=== PATIENT | female | born 1990 | race African-American/Black ===

== ENCOUNTER 2016-07-20 21:58 | Emergency (ER) | payer MEDICAID ==
[~2016-07-20] VITALS: Ht 147.3 cm; Wt 50.0 kg
[~2016-07-20 21:58] MED LIST: ALEVE 220MG220 MG PO; AMITRIPTYLINE H75 M1 PO; AMOXICILLIN 50500 MG PO; AMOXICILLIN 8751 TAB PO; ATARAX50 MG PO; CLEOCIN HCL300 MG PO; COLACE 100100 MG/CAP PO; DICLOXACILLIN500 MG PO; DILAUDID 2MG TAB2 MG PO; DOXYCYCLINE 10100 MG PO; FELDENE10 MG PO; FERROUS SU325 MG/TAB PO; FLAGYL500 MG PO; FLEXERIL 1010 MG/TAB PO; FLUOCINONIDE; FOLIC ACID 11 MG/TA1 PO; GENTAMICIN EYE D5 ML OU; IBU600 MG PO; LIDEX TP; LORTAB 5/500 501 TAB PO; MIRENA52 MG IU; MOBIC 7.5MG7.5 MG PO; MOTRIN 400400 MG/TAB PO; MOTRIN 600600 MG/TAB PO; MOTRIN 800800 MG/TAB PO; NAPROSYN500 MG PO; NEXPLANON68 MG; NEXPLANON68 MG ID; NORCO 325 MG-51 TAB PO; NORCO 325 MG-7.1 TAB PO; ORTHO TRI-CYCLE1 TAB PO; PEN-VEE K500 MG PO; PEPCID 20MG TAB20 MG PO; PERCOCET 325 MG1 TA2 PO; PERCOCET 325 MG1 TA3 PO; PHENERGAN 25 TA25 MG PO; PHENERGAN25 MG RC; PREDNISONE20 MG PO; PRENATAL1 TA1 PO; PRENATAL1 TA2 PO; PROCARDIA10 MG PO; ROXICODONE 55 MG/TAB PO; TUCKS50%; TYLENOL 325MG325 MG PO; ULTRAM 50MG TAB50 MG PO; VALIUM 10MG10 MG/TAB PO; VALTREX1 GM PO; VICODIN 5/300; VIT B 12; ZANTAC 150MG T150 MG PO; ZITHROMAX 250M250 MG PO; ZITHROMAX Z PA250 MG PO; ZOFRAN 4MG T4 MG/TAB PO; ZOFRAN ODT4 MG PO; ZOFRAN8 MG PO; ZOVIRAX 200MG200 MG PO; ZOVIRAX800 MG PO
[2016-07-20 22:03] VITALS: TEMP 97.9
[2016-07-20] MEDS ORDERED: DICLEGIS (22:11)
[2016-07-20] MEDS ORDERED: PERCOCET 325 MG1 TA2 PO (22:37)
[2016-07-20 22:53] VITALS: BP 97/62; PULSE 92
== END 2016-07-20 22:53 | disposition home or self-care (01) ==
LOC: COL.ER 21:58
DX: M54.5 Low back pain (principal); M53.3 Sacrococcygeal disorders, not elsewhere classified

== ENCOUNTER 2016-08-29 20:27 | Outpatient (CLI) | payer MEDICAID ==
[~2016-08-29] VITALS: Ht 147.3 cm; Wt 50.5 kg
[~2016-08-29 20:27] MED LIST changes: +DICLEGIS
[2016-08-29 20:52] VITALS: BP 95/53; PULSE 69; TEMP 97.9
[2016-08-29 21:00] VITALS: BP 95/53; PULSE 69
[2016-08-29] MEDS ORDERED: TYLENOL 500MG500 MG PO (21:10)
[2016-08-29 21:30] VITALS: BP 91/50; PULSE 66
[2016-08-29 22:00] VITALS: BP 93/51; PULSE 68
[2016-08-29 22:30] VITALS: BP 90/56; PULSE 73
[2016-08-29 23:04] VITALS: BP 91/50; PULSE 62
== END 2016-08-29 23:15 | disposition home or self-care (01) ==
LOC: LDRO 20:27
DX: O47.02 False labor before 37 completed weeks of gestation, second trimester (principal); O26.22 Pregnancy care for patient with recurrent pregnancy loss, second trimester; O99.332 Smoking (tobacco) complicating pregnancy, second trimester; F17.210 Nicotine dependence, cigarettes, uncomplicated; Z3A.24 24 weeks gestation of pregnancy
CPT/HCPCS: J7120

== ENCOUNTER 2016-09-03 17:30 | Emergency (ER) | payer MEDICAID ==
[~2016-09-03] VITALS: Ht 147.3 cm; Wt 45.5 kg
[~2016-09-03 17:30] MED LIST changes: +TYLENOL 500MG500 MG PO
[2016-09-03 17:41] VITALS: TEMP 98.4
[2016-09-03 18:55] LABS: PH 6 (5-8); SQUAMOUS EPITHELIAL 0-2 /hpf; URINE APPEARANCE Clear; URINE BACTERIA None Seen /hpf; URINE BILIRUBIN Negative (NEGATIVE); URINE BLOOD Negative (NEGATIVE); URINE COLOR Yellow; URINE GLUCOSE Negative (NEGATIVE); URINE KETONE Negative (NEGATIVE); URINE RBC 0-2 /hpf; URINE UROBILINOGEN Negative (NEGATIVE); URINE WBC 0-2 /hpf
[2016-09-03] MEDS ORDERED: PROMETHAZINE12.5 M5 PO (19:21)
[2016-09-03 19:31] VITALS: BP 110/65; PULSE 82
== END 2016-09-03 19:33 | disposition home or self-care (01) ==
LOC: COL.ER 17:30
PROVIDERS: Physician Assistant
DX: O99.322 Drug use complicating pregnancy, second trimester (principal); F11.20 Opioid dependence, uncomplicated; Z3A.24 24 weeks gestation of pregnancy; O99.332 Smoking (tobacco) complicating pregnancy, second trimester; F17.210 Nicotine dependence, cigarettes, uncomplicated

== ENCOUNTER 2016-11-02 16:21 | Outpatient (CLI) | payer MEDICAID ==
[~2016-11-02] VITALS: Ht 147.3 cm; Wt 54.5 kg
[~2016-11-02 16:21] MED LIST changes: +PROMETHAZINE12.5 M5 PO
[2016-11-02 16:43] VITALS: BP 89/55; PULSE 62; TEMP 97.5
[2016-11-02 17:00] VITALS: BP 89/55; PULSE 62; TEMP 97.5
[2016-11-02 19:30] VITALS: BP 99/55; PULSE 67
== END 2016-11-02 19:45 | disposition home or self-care (01) ==
LOC: LDRO 16:21
DX: O47.03 False labor before 37 completed weeks of gestation, third trimester (principal); F17.210 Nicotine dependence, cigarettes, uncomplicated; Z3A.33 33 weeks gestation of pregnancy

== ENCOUNTER 2016-11-30 15:56 | Inpatient (IN) | payer MEDICAID ==
[2016-11-30] VITALS (22 sets, daily range): BP systolic 95–137; BP diastolic 50–85; PULSE 52–76; TEMP 97.7–98.2
[~2016-11-30] VITALS: Ht 149.9 cm; Wt 53.6 kg
[2016-11-30 19:22] LABS: BASO % 0.1 % (0.0-2.0); EOS # 0.1 (0.0-0.7); EOS % 0.7 % (0-4.0); GRAN # 10.2 (1.4-6.5); GRAN % 74.2 % (42.2-75.2); LYMPH # 2.5 (1.2-3.4); LYMPH % 18.2 % (20.0-51.0); MEAN CELL VOLUME 92 fl (80.0-100.0); MEAN CORPUSCULAR HGB CONC 36 g/dl (33.0-37.0); MEAN PLATELET VOLUME 9.9 fl (7.4-10.4); MONO # 0.8 (0.1-0.6); MONO % 6.1 % (1.7-9.3); PLATELET COUNT 219 K/mm3 (130-400); RED BLOOD COUNT 2.97 M/mm3 (4.10-5.30); REDCELL DISTRIBUTION WIDTH-CV 12.5 % (11.5-14.5); WHITE BLOOD COUNT 13.7 K/mm3 (4.8-10.8)
[2016-11-30 19:24] LABS: HEMATOCRIT 27.3 % (37.0-47.0); HEMOGLOBIN 9.8 g/dl (12.5-16.0); MEAN CORPUSCULAR HEMOGLOBIN 33 pg (27.0-31.0)
[2016-11-30 19:42] LABS: AMPHETAMINE URINE NEGATIVE; BARBITURATES URINE NEGATIVE; BENZODIAZEPINES URINE NEGATIVE; BUPRENORPHINE URINE NEGATIVE; METHADONE URINE NEGATIVE; OPIATES URINE NEGATIVE; OXYCODONE URINE NEGATIVE; PHENCYCLIDINE URINE NEGATIVE; PROPOXYPHENE URINE NEGATIVE; THC CANNABINOIDS URINE NEGATIVE
[2016-12-01] VITALS (7 sets, daily range): BP systolic 94–132; BP diastolic 51–75; PULSE 48–86; TEMP 97.5–98.8
[2016-12-02 08:52] VITALS: BP 96/57; PULSE 51; TEMP 98
[2016-12-02] MEDS ORDERED: IBU600 MG PO (11:46)
[2016-12-02] MEDS ORDERED: PERCOCET 325 MG1 TA2 PO (11:47)
[2016-12-02] MEDS ORDERED: BREASTPUMP MC (11:56)
== END 2016-12-02 12:30 | disposition home or self-care (01) | DRG 774 ==
LOC: LDRO 15:56 → LDR 19:15 → OB 12-01 00:30
PROVIDERS: Obstetrics & Gynecology
PROC: 10E0XZZ Delivery of Products of Conception, External Approach (ICD-10-PCS; principal; 2016-11-30)
PROC: 3E033VJ Introduction of Other Hormone into Peripheral Vein, Percutaneous Approach (ICD-10-PCS; 2016-11-30)
PROC: 0HQ9XZZ Repair Perineum Skin, External Approach (ICD-10-PCS; 2016-11-30)
DX: O41.03X0 Oligohydramnios, third trimester, not applicable or unspecified (principal); O98.511 Other viral diseases complicating pregnancy, first trimester; B00.9 Herpesviral infection, unspecified; O76 Abnormality in fetal heart rate and rhythm complicating labor and delivery; O99.334 Smoking (tobacco) complicating childbirth; F17.210 Nicotine dependence, cigarettes, uncomplicated; O99.02 Anemia complicating childbirth; D57.3 Sickle-cell trait; O70.0 First degree perineal laceration during delivery; Z3A.37 37 weeks gestation of pregnancy; Z37.0 Single live birth
CPT/HCPCS: J2590; J7120

== ENCOUNTER 2016-12-11 15:55 | Emergency (ER) | payer MEDICAID ==
[~2016-12-11] VITALS: Ht 147.3 cm; Wt 50.0 kg
[~2016-12-11 15:55] MED LIST changes: +BREASTPUMP MC
[2016-12-11 16:03] VITALS: PULSE 55; TEMP 98
[2016-12-11 17:03] LABS: BASO % 0.3 % (0.0-2.0); EOS # 0.2 (0.0-0.7); EOS % 2.2 % (0-4.0); GRAN # 6.2 (1.4-6.5); HEMATOCRIT 31.8 % (37.0-47.0); HEMOGLOBIN 11.1 g/dl (12.5-16.0); LYMPH # 3.5 (1.2-3.4); LYMPH % 33.1 % (20.0-51.0); MEAN CELL VOLUME 96 fl (80.0-100.0); MEAN CORPUSCULAR HEMOGLOBIN 33 pg (27.0-31.0); MEAN CORPUSCULAR HGB CONC 35 g/dl (33.0-37.0); MEAN PLATELET VOLUME 9.3 fl (7.4-10.4); MONO # 0.5 (0.1-0.6); MONO % 5.2 % (1.7-9.3); PLATELET COUNT 392 K/mm3 (130-400); RED BLOOD COUNT 3.33 M/mm3 (4.10-5.30); REDCELL DISTRIBUTION WIDTH-CV 12.6 % (11.5-14.5); WHITE BLOOD COUNT 10.5 K/mm3 (4.8-10.8)
[2016-12-11 17:05] LABS: PH 6 (5-8); SQUAMOUS EPITHELIAL None Seen /hpf; URINE APPEARANCE Clear; URINE BACTERIA None Seen /hpf; URINE BILIRUBIN Negative (NEGATIVE); URINE BLOOD 1+ (NEGATIVE); URINE COLOR Straw; URINE GLUCOSE Negative (NEGATIVE); URINE KETONE Negative (NEGATIVE); URINE RBC 0-2 /hpf; URINE UROBILINOGEN Negative (NEGATIVE); URINE WBC 0-2 /hpf
[2016-12-11 17:14] LABS: ADJUSTED CALCIUM 8.8 mg/dL (8.4-10.2); ALBUMIN 4.2 gm/dL (3.5-5.0); BILIRUBIN,TOTAL 0.6 mg/dL (0.0-1.0); CREATININE, serum 0.7 mg/dL (0.52-1.25); POTASSIUM 3.8 mmol/L (3.4-5.0); TOTAL PROTEIN 7.2 gm/dL (6.4-8.2)
[2016-12-11] MEDS ORDERED: PROCARDIA XL 3030 MG PO (18:34)
[2016-12-11 18:47] VITALS: BP 159/95
== END 2016-12-11 18:54 | disposition home or self-care (01) ==
LOC: COL.ER 15:55
PROVIDERS: Emergency Medicine
DX: O99.43 Diseases of the circulatory system complicating the puerperium (principal); I10 Essential (primary) hypertension; O99.53 Diseases of the respiratory system complicating the puerperium; J45.909 Unspecified asthma, uncomplicated; O99.345 Other mental disorders complicating the puerperium; F20.9 Schizophrenia, unspecified; O99.63 Diseases of the digestive system complicating the puerperium; K21.9 Gastro-esophageal reflux disease without esophagitis; O99.335 Smoking (tobacco) complicating the puerperium; Z98.890 Other specified postprocedural states; Z98.51 Tubal ligation status; Z90.721 Acquired absence of ovaries, unilateral
CPT/HCPCS: J2765; J3010; J7040

== ENCOUNTER 2017-01-21 21:28 | Emergency (ER) | payer MEDICAID ==
[~2017-01-21] VITALS: Ht 147.3 cm; Wt 52.3 kg
[~2017-01-21 21:28] MED LIST changes: +PROCARDIA XL 3030 MG PO
[2017-01-21 21:36] VITALS: BP 114/69; TEMP 98.4
[2017-01-21] MEDS ORDERED: PERCOCET 325 MG1 TA2 PO (21:40)
[2017-01-21 23:55] VITALS: PULSE 72
== END 2017-01-21 23:58 | disposition home or self-care (01) ==
LOC: COL.ER 21:28
DX: R51 Headache (principal); Z98.51 Tubal ligation status
CPT/HCPCS: J1200; J1630; J1885; J2405; J7030

== ENCOUNTER 2017-01-25 01:54 | Emergency (ER) | payer MEDICAID ==
[~2017-01-25] VITALS: Ht 147.3 cm; Wt 50.0 kg
[2017-01-25 01:57] VITALS: TEMP 97.6
[2017-01-25] MEDS ORDERED: MOTRIN 800800 MG/TAB PO (02:37)
[2017-01-25] MEDS ORDERED: COLACE 100100 MG/CAP PO (02:37)
[2017-01-25] MEDS ORDERED: IRON 27 MG PO (02:38)
[2017-01-25 02:39] LABS: BASO # 0.1 (0.0-0.2); BASO % 0.4 % (0.0-2.0); EOS # 0.6 (0.0-0.7); EOS % 3.5 % (0-4.0); GRAN # 10.1 (1.4-6.5); GRAN % 61.7 % (42.2-75.2); HEMATOCRIT 35.9 % (37.0-47.0); HEMOGLOBIN 12.7 g/dl (12.5-16.0); LYMPH # 4.8 (1.2-3.4); LYMPH % 29.3 % (20.0-51.0); MEAN CELL VOLUME 93 fl (80.0-100.0); MEAN CORPUSCULAR HEMOGLOBIN 33 pg (27.0-31.0); MEAN CORPUSCULAR HGB CONC 35 g/dl (33.0-37.0); MEAN PLATELET VOLUME 9.5 fl (7.4-10.4); MONO # 0.8 (0.1-0.6); MONO % 4.9 % (1.7-9.3); PLATELET COUNT 316 K/mm3 (130-400); RED BLOOD COUNT 3.88 M/mm3 (4.10-5.30); REDCELL DISTRIBUTION WIDTH-CV 11.3 % (11.5-14.5); WHITE BLOOD COUNT 16.3 K/mm3 (4.8-10.8)
[2017-01-25 03:56] VITALS: BP 112/75; PULSE 50
== END 2017-01-25 03:56 | disposition home or self-care (01) ==
LOC: COL.ER 01:54
PROVIDERS: Emergency Medicine
DX: J06.9 Acute upper respiratory infection, unspecified (principal); R07.89 Other chest pain; F17.210 Nicotine dependence, cigarettes, uncomplicated; Z90.49 Acquired absence of other specified parts of digestive tract; Z90.89 Acquired absence of other organs; Z98.51 Tubal ligation status
CPT/HCPCS: Q9967

== ENCOUNTER 2017-03-10 20:48 | Emergency (ER) | payer MEDICAID ==
[~2017-03-10] VITALS: Ht 147.3 cm; Wt 52.3 kg
[~2017-03-10 20:48] MED LIST changes: +IRON 27 MG PO
[2017-03-10 20:56] VITALS: BP 102/65; TEMP 98.6
[2017-03-10] MEDS ORDERED: VALTREX 50500 MG/TAB PO (21:00)
[2017-03-10 21:56] VITALS: PULSE 61
== END 2017-03-10 21:56 | disposition home or self-care (01) ==
LOC: COL.ER 20:48
DX: M67.432 Ganglion, left wrist (principal); F17.210 Nicotine dependence, cigarettes, uncomplicated; D57.3 Sickle-cell trait; Z87.39 Personal history of other diseases of the musculoskeletal system and connective tissue
CPT/HCPCS: J1885

== ENCOUNTER 2017-05-29 17:52 | Emergency (ER) | payer MEDICAID ==
[~2017-05-29] VITALS: Ht 147.3 cm; Wt 54.5 kg
[2017-05-29 17:52] VITALS: TEMP 97.4
[~2017-05-29 17:52] MED LIST changes: +VALTREX 50500 MG/TAB PO
[2017-05-29] MEDS ORDERED: FLAGYL500 MG PO (17:57)
[2017-05-29 20:34] VITALS: BP 121/81; PULSE 65
== END 2017-05-29 20:35 | disposition home or self-care (01) ==
LOC: COL.ER 17:52
DX: S09.90XA Unspecified injury of head, initial encounter (principal); S01.81XA Laceration without foreign body of other part of head, initial encounter; F20.9 Schizophrenia, unspecified; J45.909 Unspecified asthma, uncomplicated; F17.210 Nicotine dependence, cigarettes, uncomplicated; Z86.2 Personal history of diseases of the blood and blood-forming organs and certain disorders involving the immune mechanism; W18.09XA Striking against other object with subsequent fall, initial encounter; Y92.009 Unspecified place in unspecified non-institutional (private) residence as the place of occurrence of the external cause
CPT/HCPCS: J1170; J2405

== ENCOUNTER 2017-05-30 21:41 | Emergency (ER) | payer MEDICAID ==
[~2017-05-30] VITALS: Ht 147.3 cm; Wt 54.5 kg
[2017-05-30 21:46] VITALS: BP 104/66; TEMP 98.9
[2017-05-31] MEDS ORDERED: ZANAFLEX2 MG PO (00:10)
[2017-05-31 00:54] VITALS: PULSE 80
== END 2017-05-31 00:30 | disposition home or self-care (01) ==
LOC: COL.ER 21:41
DX: S16.1XXA Strain of muscle, fascia and tendon at neck level, initial encounter (principal); S39.012A Strain of muscle, fascia and tendon of lower back, initial encounter; W19.XXXA Unspecified fall, initial encounter

== ENCOUNTER 2017-07-25 22:34 | Emergency (ER) | payer MEDICAID ==
[~2017-07-25] VITALS: Ht 147.3 cm; Wt 52.3 kg
[~2017-07-25 22:34] MED LIST changes: +ZANAFLEX2 MG PO
[2017-07-25 22:38] VITALS: TEMP 97.2
[2017-07-25 23:46] LABS: COLLECTION METHOD CLEAN CATCH
[2017-07-25 23:48] LABS: BASO % 0.3 % (0.0-2.0); EOS # 0.3 (0.0-0.7); EOS % 2.9 % (0-4.0); GRAN % 59.2 % (42.2-75.2); HEMOGLOBIN 12.5 g/dl (12.5-16.0); LYMPH # 3.9 (1.2-3.4); LYMPH % 33.1 % (20.0-51.0); MEAN CELL VOLUME 94 fl (80.0-100.0); MEAN CORPUSCULAR HEMOGLOBIN 33 pg (27.0-31.0); MEAN CORPUSCULAR HGB CONC 36 g/dl (33.0-37.0); MEAN PLATELET VOLUME 9.5 fl (7.4-10.4); MONO # 0.5 (0.1-0.6); MONO % 4.2 % (1.7-9.3); PLATELET COUNT 265 K/mm3 (130-400); RED BLOOD COUNT 3.75 M/mm3 (4.10-5.30); REDCELL DISTRIBUTION WIDTH-CV 12.1 % (11.5-14.5)
[2017-07-25 23:49] LABS: HEMATOCRIT 35.1 % (37.0-47.0)
[2017-07-25 23:51] LABS: MUCOUS Present /lpf; PH 6 (5-8); SQUAMOUS EPITHELIAL 0-2 /hpf; URINE APPEARANCE Clear; URINE BACTERIA None Seen /hpf; URINE BILIRUBIN Negative (NEGATIVE); URINE BLOOD Negative (NEGATIVE); URINE COLOR Straw; URINE GLUCOSE Negative (NEGATIVE); URINE KETONE Negative (NEGATIVE); URINE LEUKOCYTE ESTERASE Negative (NEGATIVE); URINE NITRATE Negative (NEGATIVE); URINE PROTEIN(semi-quant) Negative (NEGATIVE); URINE RBC 0-2 /hpf; URINE UROBILINOGEN Negative (NEGATIVE)
[2017-07-25 23:59] LABS: ALBUMIN 4.4 gm/dL (3.5-5.0); BILIRUBIN,TOTAL 0.4 mg/dL (0.0-1.0); CALCIUM 9.5 mg/dL (8.4-10.2); CREATININE, serum 0.59 mg/dL (0.52-1.25); POTASSIUM 3.8 mmol/L (3.4-5.0); TOTAL PROTEIN 7.3 gm/dL (6.4-8.2)
[2017-07-26] MEDS ORDERED: PERCOCET 325 MG1 TA2 PO (00:49)
[2017-07-26 01:04] VITALS: BP 110/79; PULSE 57
== END 2017-07-26 01:08 | disposition home or self-care (01) ==
LOC: COL.ER 22:34
PROVIDERS: Emergency Medicine
DX: N83.202 Unspecified ovarian cyst, left side (principal); F17.210 Nicotine dependence, cigarettes, uncomplicated; Z90.721 Acquired absence of ovaries, unilateral; Z98.51 Tubal ligation status; Z90.6 Acquired absence of other parts of urinary tract; Z90.89 Acquired absence of other organs
CPT/HCPCS: J2765; J3010; J7030; Q9967

== ENCOUNTER 2017-08-26 00:14 | Emergency (ER) | payer MEDICAID ==
[~2017-08-26] VITALS: Ht 147.3 cm; Wt 52.3 kg
[2017-08-26 00:18] VITALS: TEMP 98
[2017-08-26] MEDS ORDERED: FLEXERIL5 MG PO (01:35)
[2017-08-26] MEDS ORDERED: NAPROSYN500 MG PO (01:46)
[2017-08-26 02:15] VITALS: BP 116/66; PULSE 71
== END 2017-08-26 02:25 | disposition home or self-care (01) ==
LOC: COL.ER 00:14
DX: M54.2 Cervicalgia (principal); M62.838 Other muscle spasm; J45.909 Unspecified asthma, uncomplicated; F20.0 Paranoid schizophrenia; F17.210 Nicotine dependence, cigarettes, uncomplicated; Z85.41 Personal history of malignant neoplasm of cervix uteri; Z90.89 Acquired absence of other organs; Z98.51 Tubal ligation status; Z90.721 Acquired absence of ovaries, unilateral; Z98.890 Other specified postprocedural states; W00.0XXA Fall on same level due to ice and snow, initial encounter
CPT/HCPCS: J1885

== ENCOUNTER 2017-09-25 00:26 | Emergency (ER) | payer MEDICAID ==
[~2017-09-25] VITALS: Ht 147.3 cm; Wt 50.0 kg
[~2017-09-25 00:26] MED LIST changes: +FLEXERIL5 MG PO
[2017-09-25 00:35] VITALS: TEMP 97.8
[2017-09-25 01:50] VITALS: BP 111/63; PULSE 81
== END 2017-09-25 01:53 | disposition home or self-care (01) ==
LOC: COL.ER 00:26
DX: B34.9 Viral infection, unspecified (principal); F17.210 Nicotine dependence, cigarettes, uncomplicated; Z96.22 Myringotomy tube(s) status; Z86.2 Personal history of diseases of the blood and blood-forming organs and certain disorders involving the immune mechanism; Z87.42 Personal history of other diseases of the female genital tract; Z88.2 Allergy status to sulfonamides; Z88.1 Allergy status to other antibiotic agents; Z88.6 Allergy status to analgesic agent; Z90.89 Acquired absence of other organs; Z98.890 Other specified postprocedural states

== ENCOUNTER 2018-01-05 19:57 | Emergency (ER) | payer MEDICAID ==
[~2018-01-05] VITALS: Ht 147.3 cm; Wt 51.8 kg
[2018-01-05 20:04] VITALS: BP 110/60; PULSE 80; TEMP 98.5
[2018-01-05] MEDS ORDERED: PERCOCET 325 MG1 TA2 PO (22:13)
== END 2018-01-05 22:29 | disposition home or self-care (01) ==
LOC: COL.ER 19:57
DX: S16.1XXA Strain of muscle, fascia and tendon at neck level, initial encounter (principal); M54.9 Dorsalgia, unspecified; M54.2 Cervicalgia; G89.29 Other chronic pain; F17.210 Nicotine dependence, cigarettes, uncomplicated; Z79.891 Long term (current) use of opiate analgesic; W00.0XXA Fall on same level due to ice and snow, initial encounter

== ENCOUNTER 2018-07-13 19:57 | Emergency (ER) | payer MEDICAID ==
[~2018-07-13] VITALS: Ht 147.3 cm; Wt 53.2 kg
[2018-07-13 19:59] VITALS: BP 100/59; TEMP 98.8
[2018-07-13] MEDS ORDERED: PRENATAL MVI PO (20:17)
[2018-07-13] MEDS ORDERED: SUBOXONE 8 MG-21 TAB SL (20:18)
[2018-07-13 22:08] VITALS: PULSE 64
== END 2018-07-13 22:09 | disposition home or self-care (01) ==
LOC: COL.ER 19:57
DX: K08.89 Other specified disorders of teeth and supporting structures (principal); F17.210 Nicotine dependence, cigarettes, uncomplicated; Z98.51 Tubal ligation status

== ENCOUNTER 2020-09-26 23:36 | Emergency (ER) | payer MEDICAID ==
[~2020-09-26] VITALS: Ht 147.3 cm; Wt 51.4 kg
[~2020-09-26 23:36] MED LIST changes: +PRENATAL MVI PO; +SUBOXONE 8 MG-21 TAB SL
[2020-09-26 23:48] VITALS: TEMP 97.9
[2020-09-27 00:37] VITALS: BP 94/58; PULSE 72
== END 2020-09-27 00:37 | disposition home or self-care (01) ==
LOC: COL.ER 23:36
DX: H10.31 Unspecified acute conjunctivitis, right eye (principal); F17.210 Nicotine dependence, cigarettes, uncomplicated; Z88.2 Allergy status to sulfonamides; Z88.5 Allergy status to narcotic agent

== ENCOUNTER 2020-12-22 12:51 | Emergency (ER) | payer MEDICAID ==
[~2020-12-22] VITALS: Ht 147.3 cm; Wt 52.3 kg
[2020-12-22 13:00] VITALS: TEMP 98.7
[2020-12-22 14:04] LABS: BASO % 0.3 % (0.0-2.0); EOS # 0.3 (0.0-0.7); EOS % 3.6 % (0-4.0); GRAN # 5.8 (1.4-6.5); GRAN % 63.9 % (42.2-75.2); HEMOGLOBIN 11.6 g/dl (12.5-16.0); LYMPH # 2.4 (1.2-3.4); LYMPH % 26.7 % (20.0-51.0); MEAN CELL VOLUME 92 fl (80.0-100.0); MEAN CORPUSCULAR HEMOGLOBIN 32 pg (27.0-31.0); MEAN CORPUSCULAR HGB CONC 35 g/dl (33.0-37.0); MEAN PLATELET VOLUME 9.5 fl (7.4-10.4); MONO # 0.5 (0.1-0.6); MONO % 5.3 % (1.7-9.3); PLATELET COUNT 240 K/mm3 (130-400); RED BLOOD COUNT 3.62 M/mm3 (4.10-5.30); REDCELL DISTRIBUTION WIDTH-CV 11.9 % (11.5-14.5)
[2020-12-22 14:05] LABS: HEMATOCRIT 33.4 % (37.0-47.0)
[2020-12-22 14:17] LABS: ALBUMIN 3.4 gm/dL (3.5-5.0); BILIRUBIN,TOTAL 0.2 mg/dL (0.0-1.0); CALCIUM 8.5 mg/dL (8.4-10.2); CREATININE, serum 0.47 (0.52-1.25); POTASSIUM 3.5 mmol/L (3.4-5.0); TOTAL PROTEIN 6.2 gm/dL (6.4-8.2)
[2020-12-22 14:28] LABS: COLLECTION METHOD CLEAN CATCH
[2020-12-22 14:57] LABS: PH 5 (5-8); URINE APPEARANCE Hazy; URINE BACTERIA None Seen /hpf; URINE BILIRUBIN Negative (NEGATIVE); URINE BLOOD Negative (NEGATIVE); URINE COLOR Yellow; URINE GLUCOSE Negative (NEGATIVE); URINE KETONE Negative (NEGATIVE); URINE LEUKOCYTE ESTERASE Negative (NEGATIVE); URINE NITRATE Negative (NEGATIVE); URINE PROTEIN(semi-quant) Negative (NEGATIVE); URINE RBC 0-2 /hpf; URINE UROBILINOGEN Negative (NEGATIVE)
[2020-12-22] MEDS ORDERED: NAPROSYN500 MG PO (15:51)
[2020-12-22 16:43] VITALS: BP 93/50; PULSE 63
== END 2020-12-22 16:42 | disposition home or self-care (01) ==
LOC: COL.ER 12:51
PROVIDERS: Nurse Practitioner
DX: M54.42 Lumbago with sciatica, left side (principal); F17.210 Nicotine dependence, cigarettes, uncomplicated; Z88.6 Allergy status to analgesic agent
CPT/HCPCS: J1885; J2405; J7030

== ENCOUNTER 2021-01-03 09:31 | Emergency (ER) | payer MEDICAID ==
[~2021-01-03] VITALS: Ht 147.3 cm; Wt 52.3 kg
[2021-01-03 09:56] VITALS: TEMP 98.4
[2021-01-03] MEDS ORDERED: PROZAC40 MG PO (10:01)
[2021-01-03] MEDS ORDERED: ZYPREXA2.5 MG PO (10:01)
[2021-01-03 10:36] LABS: BASO % 0.4 % (0.0-2.0); EOS # 0.6 (0.0-0.7); EOS % 6.1 % (0-4.0); GRAN # 5.9 (1.4-6.5); GRAN % 55.5 % (42.2-75.2); HEMATOCRIT 35.5 % (37.0-47.0); HEMOGLOBIN 12.4 g/dl (12.5-16.0); LYMPH # 3.2 (1.2-3.4); LYMPH % 30.3 % (20.0-51.0); MEAN CELL VOLUME 91 fl (80.0-100.0); MEAN CORPUSCULAR HEMOGLOBIN 32 pg (27.0-31.0); MEAN CORPUSCULAR HGB CONC 35 g/dl (33.0-37.0); MEAN PLATELET VOLUME 10.1 fl (7.4-10.4); MONO # 0.8 (0.1-0.6); MONO % 7.6 % (1.7-9.3); PLATELET COUNT 269 K/mm3 (130-400); RED BLOOD COUNT 3.92 M/mm3 (4.10-5.30); REDCELL DISTRIBUTION WIDTH-CV 12.3 % (11.5-14.5)
[2021-01-03 11:08] LABS: ALANINE AMINOTRANSFERASE 63 U/L (4-34); ALBUMIN 3.8 gm/dL (3.5-5.0); ALKALINE PHOSPHATASE 106 U/L (50-136); ANION GAP 3 mmol/L (7-16); AST,SGOT 44 U/L (15-37); BILIRUBIN,TOTAL 0.2 mg/dL (0.0-1.0); BLOOD UREA NITROGEN 8 mg/dL (7-17); CALCIUM 8.9 mg/dL (8.4-10.2); CARBON DIOXIDE 28 mmol/L (22-30); CHLORIDE 107 mmol/L (98-107); CREATININE, serum 0.54 (0.52-1.25); GLUCOSE 92 mg/dL (74-106); SODIUM 138 mmol/L (137-145); TOTAL PROTEIN 6.8 gm/dL (6.4-8.2)
[2021-01-03 11:24] LABS: TROPONIN-I < 0.012 ng/mL (0.000-0.035)
[2021-01-03 11:25] LABS: POTASSIUM 4.3 mmol/L (3.4-5.0)
[2021-01-03] MEDS ORDERED: TUSS PO ×3 (12:04→13:00)
[2021-01-03] MEDS ORDERED: PROAIR HFA0.09 MG/AC IH (12:04)
[2021-01-03] MEDS ORDERED: ZITHROMAX Z PA250 MG PO (12:04)
[2021-01-03] MEDS ORDERED: PREDNISONE20 MG PO (12:04)
[2021-01-03 12:15] VITALS: BP 118/80; PULSE 61
== END 2021-01-03 12:15 | disposition home or self-care (01) ==
LOC: COL.ER 09:31
PROVIDERS: Emergency Medicine; Nurse Practitioner Primary Care
DX: J21.9 Acute bronchiolitis, unspecified (principal); J45.909 Unspecified asthma, uncomplicated; F20.9 Schizophrenia, unspecified; F17.210 Nicotine dependence, cigarettes, uncomplicated; Z88.6 Allergy status to analgesic agent; Z88.8 Allergy status to other drugs, medicaments and biological substances; Z20.822 Contact with and (suspected) exposure to COVID-19
CPT/HCPCS: J1885

== ENCOUNTER 2021-03-05 04:25 | Emergency (ER) | payer MEDICAID ==
[~2021-03-05] VITALS: Ht 147.3 cm; Wt 54.5 kg
[~2021-03-05 04:25] MED LIST changes: +PROAIR HFA0.09 MG/AC IH; +PROZAC40 MG PO; +TUSS PO; +ZYPREXA2.5 MG PO
[2021-03-05 04:34] VITALS: TEMP 98
[2021-03-05 05:07] VITALS: BP 110/68; PULSE 69
[2021-03-05] MEDS ORDERED: PHENERGAN 25 TA25 MG PO (16:24)
== END 2021-03-05 05:20 | disposition home or self-care (01) ==
LOC: COL.ER 04:25
DX: M54.30 Sciatica, unspecified side (principal); Z88.6 Allergy status to analgesic agent
CPT/HCPCS: J1885; J2360

== ENCOUNTER 2021-03-05 13:30 | Emergency (ER) | payer MEDICAID ==
[~2021-03-05] VITALS: Ht 147.3 cm; Wt 56.8 kg
[2021-03-05 13:53] VITALS: TEMP 97.5
[2021-03-05] MEDS ORDERED: PHENERGAN 25 TA25 MG PO (16:24)
[2021-03-05 16:35] VITALS: BP 127/82; PULSE 52
== END 2021-03-05 16:35 | disposition home or self-care (01) ==
LOC: COL.ER 13:30
DX: F19.239 Other psychoactive substance dependence with withdrawal, unspecified (principal); M54.5 Low back pain; G89.29 Other chronic pain
CPT/HCPCS: J2405; J7030

== ENCOUNTER 2021-03-26 02:25 | Emergency (ER) | payer MEDICAID ==
[~2021-03-26] VITALS: Ht 147.3 cm; Wt 55.5 kg
[2021-03-26 04:50] VITALS: BP 121/69; PULSE 81; TEMP 98
== END 2021-03-26 04:55 | disposition home or self-care (01) ==
LOC: COL.ER 02:25
DX: F11.23 Opioid dependence with withdrawal (principal)

== ENCOUNTER 2021-07-07 16:31 | Emergency (ER) | payer MEDICAID ==
[~2021-07-07] VITALS: Ht 147.3 cm; Wt 61.4 kg
[2021-07-07 16:45] VITALS: BP 101/68; TEMP 98.4
[2021-07-07 19:00] VITALS: PULSE 82
== END 2021-07-07 19:00 | disposition home or self-care (01) ==
LOC: COL.ER 16:31
DX: S80.01XA Contusion of right knee, initial encounter (principal); W01.198A Fall on same level from slipping, tripping and stumbling with subsequent striking against other object, initial encounter

== ENCOUNTER 2021-09-19 09:30 | Emergency (ER) | payer SELFPAY ==
[~2021-09-19] VITALS: Ht 147.3 cm; Wt 61.4 kg
[2021-09-19 10:10] VITALS: TEMP 98.2
[2021-09-19] MEDS ORDERED: ZYPREXA 5MG5 MG PO (10:41)
[2021-09-19 13:46] VITALS: BP 98/60; PULSE 60
[2021-09-19] MEDS ORDERED: FLEXERIL 1010 MG/TAB PO (14:06)
== END 2021-09-19 13:47 | disposition home or self-care (01) ==
LOC: COL.ER 09:30
DX: S16.1XXA Strain of muscle, fascia and tendon at neck level, initial encounter (principal); S50.12XA Contusion of left forearm, initial encounter; S09.90XA Unspecified injury of head, initial encounter; F17.210 Nicotine dependence, cigarettes, uncomplicated; V43.52XA Car driver injured in collision with other type car in traffic accident, initial encounter; Y92.410 Unspecified street and highway as the place of occurrence of the external cause

== ENCOUNTER 2021-09-25 21:28 | Emergency (ER) | payer SELFPAY ==
[~2021-09-25] VITALS: Ht 147.3 cm; Wt 61.4 kg
[~2021-09-25 21:28] MED LIST changes: +ZYPREXA 5MG5 MG PO
[2021-09-25 21:42] VITALS: TEMP 98.4
[2021-09-25 23:24] VITALS: BP 124/71; PULSE 62
== END 2021-09-25 23:33 | disposition home or self-care (01) ==
LOC: COL.ER 21:28
DX: M25.561 Pain in right knee (principal); M25.551 Pain in right hip; F17.210 Nicotine dependence, cigarettes, uncomplicated; V49.9XXA Car occupant (driver) (passenger) injured in unspecified traffic accident, initial encounter

== ENCOUNTER 2021-11-04 12:29 | Emergency (ER) | payer MEDICAID ==
[~2021-11-04] VITALS: Ht 147.3 cm; Wt 63.6 kg
[2021-11-04 12:45] VITALS: TEMP 97.7
[2021-11-04] MEDS ORDERED: ZOFRAN ODT4 MG PO (14:17)
[2021-11-04 14:30] VITALS: BP 113/69; PULSE 65
== END 2021-11-04 14:30 | disposition home or self-care (01) ==
LOC: COL.ER 12:29
DX: R51.9 Headache, unspecified (principal); R11.2 Nausea with vomiting, unspecified; F17.200 Nicotine dependence, unspecified, uncomplicated
CPT/HCPCS: J1200; J1885

== ENCOUNTER → 2021-12-15 | Outpatient (CLI) | payer MEDICAID | LOC: COL.CARD 09:45 | DX: F51.3 Sleepwalking [somnambulism] (principal); G47.50 Parasomnia, unspecified; G47.51 Confusional arousals ==

== ENCOUNTER → 2022-08-28 | Outpatient (CLI) | payer MEDICAID | LOC: MHCPAIN 09:40 | DX: M54.2 Cervicalgia (principal); M79.18 Myalgia, other site | CPT/HCPCS: G0463 ==

== ENCOUNTER 2024-04-25 23:01 | Emergency (ER) | payer MEDICAID ==
[~2024-04-25] VITALS: Ht 157.5 cm; Wt 63.6 kg
[2024-04-26 01:08] VITALS: BP 127/85; PULSE 89; TEMP 98
== END 2024-04-26 01:08 | disposition home or self-care (01) ==
LOC: COL.ER 23:01
DX: R44.0 Auditory hallucinations (principal); F20.9 Schizophrenia, unspecified; F17.290 Nicotine dependence, other tobacco product, uncomplicated; Z79.899 Other long term (current) drug therapy

== ENCOUNTER 2024-06-11 18:32 | Emergency (ER) | payer MEDICAID ==
[~2024-06-11] VITALS: Ht 147.3 cm; Wt 66.8 kg
[2024-06-11] MEDS ORDERED: dexAMETHasone 10 MG/ML VIAL IM ONE (19:00)
[2024-06-11] MEDS ORDERED: Albuterol/Ipratropium 3 MG-0.5 MG/3 ML Neb Soln IH ONE (19:00)
[2024-06-11 19:33] VITALS: TEMP 99.3
[2024-06-11] MEDS ORDERED: CEFTIN500 MG PO (21:44)
[2024-06-11] MEDS ORDERED: ZITHROMAX Z PA250 MG PO (21:44)
[2024-06-11] MEDS ORDERED: Azithromycin 250 MG TAB PO ONE (21:45)
[2024-06-11] MEDS ORDERED: Acetaminophen 500 MG TAB PO ONE (21:45)
[2024-06-11] MEDS ORDERED: Cefuroxime 250 MG TAB PO ONE (21:45)
[2024-06-11] MEDS ORDERED: Ibuprofen 600 MG TAB PO ONE (21:45)
[2024-06-11 22:21] VITALS: BP 118/77; PULSE 89
[2024-06-11] MEDS ORDERED: DIFLUCAN150 MG PO (22:23)
== END 2024-06-11 22:21 | disposition home or self-care (01) ==
LOC: COL.ER 18:32
DX: J18.9 Pneumonia, unspecified organism (principal)
CPT/HCPCS: J1100